=== PATIENT | male | born 1970 | race Caucasian/White ===

== ENCOUNTER 2018-08-30 19:42 | Inpatient (IN) | payer MEDICARE, OTHER ==
[~2018-08-30] VITALS: Ht 172.7 cm; Wt 161.9 kg
[2018-08-30] MEDS ORDERED: MORPHINE SULFATE 4 MG/ML CPJ (NOT FOR IM USE) IV STA (20:16)
[2018-08-30] MEDS ORDERED: ONDANSETRON HCL 4MG/2ML INJ IV STA (20:16)
[2018-08-30 21:23] LABS: BASOPHILS % 0.2 % (0.0-2.0); CHLORIDE 101 mEq/L (98-107); EOSINOPHILS % 0.7 % (0.0-5.0); HEMATOCRIT. 37.3 % (42.0-52.0); HEMOGLOBIN. 12.4 g/dL (14.0-18.0); LYMPHOCYTES % 14.6 % (20.0-50.0); MEAN CORPUSCULAR HEMOGLOBIN 32.1 pg (28.0-32.0); MEAN CORPUSCULAR VOLUME 96.4 fL (80.0-94.0); MEAN PLATELET VOLUME 7.3 fl (7.4-10.4); MONOCYTES % 7.3 % (2.0-8.0); NEUTROPHILS % 77.2 % (40.0-76.0); PLATELET 207 x1000/uL (130-400); RED BLOOD CELL COUNT 3.87 mill/uL (4.7-6.1); RED CELL DISTRIBUTION WIDTH 13.7 % (11.6-14.6)
[2018-08-30 21:24] LABS: INR 1.1; PROTHROMBIN TIME 10.7 sec (9.1-11.1)
[2018-08-30 22:20] LABS: CLARITY URINE CLEAR (CLEAR); COLOR URINE YELLOW (YELLOW); KETONES URINE NEGATIVE (NEGATIVE); LEUKOCYTE ESTERASE URINE NEGATIVE (NEGATIVE); NITRITE URINE NEGATIVE (NEGATIVE); OCCULT BLOOD URINE NEGATIVE (NEGATIVE); PROTEIN URINE NEGATIVE (NEGATIVE); SPECIFIC GRAVITY URINE 1.023 (1.005-1.030)
[2018-08-30] MEDS ORDERED: GUAIFENESIN 200MG/10ML SUGAR FREE UDC PO PRN (22:30)
[2018-08-30] MEDS ORDERED: IPRATROPIUM/ALBUTEROL 0.5-3(2.5)MG/3ML NEB INH PRN (22:30)
[2018-08-30] MEDS ORDERED: HYDRALAZINE 20MG/ML VIAL IV PRN (22:30)
[2018-08-30] MEDS ORDERED: HYDROMORPHONE HCL/PF 2MG/ML CPJ IV PRN (22:30)
[2018-08-30] MEDS ORDERED: MAGNESIUM/ALUMINUM HYDROXIDE/SIMETHICONE 30ML UDC PO PRN (22:30)
[2018-08-30] MEDS ORDERED: DIPHENHYDRAMINE 50MG/ML VIAL IV PRN (22:30)
[2018-08-30] MEDS ORDERED: CLONIDINE 0.1MG TABLET PO PRN (22:30)
[2018-08-30] MEDS ORDERED: ONDANSETRON HCL 4MG/2ML INJ IV PRN (22:30)
[2018-08-30] MEDS ORDERED: LORAZEPAM 2MG/ML CPJ IV PRN (22:30)
[2018-08-30] MEDS ORDERED: NA PHOS,M-B/NA PHOS,DI-BA ENEMA 118ML PR PRN (22:30)
[2018-08-30] MEDS ORDERED: DOCUSATE SODIUM 100MG CAPSULE PO PRN (22:30)
[2018-08-30] MEDS ORDERED: DEXTROSE 50% WATER 50ML SYRINGE IV PRN (22:30)
[2018-08-31] MEDS: HYDROCODONE/ACETAMINOPHEN 10/325MG TABLET PO PRN ×2 (02:35→20:39)
[2018-08-31 06:51] LABS: BASOPHILS % 0.3 % (0.0-2.0); EOSINOPHILS % 0.6 % (0.0-5.0); HEMATOCRIT. 35.3 % (42.0-52.0); HEMOGLOBIN. 11.9 g/dL (14.0-18.0); LYMPHOCYTES % 16.6 % (20.0-50.0); MEAN CORPUSCULAR HEMOGLOBIN 32.3 pg (28.0-32.0); MEAN CORPUSCULAR VOLUME 96.1 fL (80.0-94.0); MEAN PLATELET VOLUME 7.4 fl (7.4-10.4); MONOCYTES % 8.4 % (2.0-8.0); NEUTROPHILS % 74.1 % (40.0-76.0); PLATELET 188 x1000/uL (130-400); RED BLOOD CELL COUNT 3.67 mill/uL (4.7-6.1); RED CELL DISTRIBUTION WIDTH 13.4 % (11.6-14.6)
[2018-08-31 07:00] LABS: CHLORIDE 101 mEq/L (98-107)
[2018-08-31 07:15] LABS: CREATINE KINASE 109 IU/L (39-308)
[2018-08-31 07:17] LABS: T4 FREE 0.86 ng/dL (0.76-1.46)
[2018-08-31 07:19] LABS: CREATINE KINASE MB FRACTION < 1.0 ng/mL (0.5-3.6)
[2018-08-31] MEDS: BLOOD SUGAR DIAGNOSTIC STRIP TEST SCH ×4 (08:20→20:39)
[2018-08-31] MEDS: INSULIN LISPRO 100 UNITS/ML SUBCUT SCH ×4 (08:20→20:40)
[2018-08-31 10:42] LABS: T4 FREE 0.88 ng/dL (0.76-1.46)
[2018-08-31 11:28] VITALS: BP 151/94
[2018-08-31] MEDS ORDERED: IOHEXOL-350 100 ML BOTTLE ONE ×2 (11:42→13:52)
[2018-08-31] MEDS: ASPIRIN 81MG EC TABLET PO SCH (11:53)
[2018-08-31] MEDS: ENOXAPARIN 40MG/0.4ML SYR SUBCUT SCH ×2 (11:55→20:39)
[2018-08-31 13:17] VITALS: BP 156/94
[2018-08-31] MEDS: SODIUM CHLORIDE 0.9% INJ 3ML FLUSH IVF SCH ×2 (14:00→21:42)
[2018-08-31 15:45] VITALS: BP 141/72
[2018-08-31] MEDS ORDERED: ASPI-1159 MT (16:21)
[2018-08-31] MEDS ORDERED: ALLO100T MT (16:26)
[2018-08-31] MEDS ORDERED: GLIP10TA10 MT (16:26)
[2018-08-31] MEDS ORDERED: FLUO-124 MT (16:26)
[2018-08-31] MEDS ORDERED: BENA20TA10 MT (16:26)
[2018-08-31] MEDS ORDERED: METF-516 MT (16:26)
[2018-08-31] MEDS ORDERED: ATOR20TA65 MT (16:26)
[2018-08-31] MEDS: ACETAMINOPHEN 325MG TABLET PO PRN (16:33)
[2018-08-31 16:48] LABS: BASOPHILS % 0.1 % (0.0-2.0); EOSINOPHILS % 0.4 % (0.0-5.0); HEMATOCRIT. 35.8 % (42.0-52.0); HEMOGLOBIN. 12.2 g/dL (14.0-18.0); LYMPHOCYTES % 12.9 % (20.0-50.0); MEAN CORPUSCULAR HEMOGLOBIN 32.7 pg (28.0-32.0); MEAN CORPUSCULAR VOLUME 96.3 fL (80.0-94.0); MEAN PLATELET VOLUME 7.1 fl (7.4-10.4); MONOCYTES % 10.2 % (2.0-8.0); NEUTROPHILS % 76.4 % (40.0-76.0); PLATELET 174 x1000/uL (130-400); RED BLOOD CELL COUNT 3.72 mill/uL (4.7-6.1); RED CELL DISTRIBUTION WIDTH 13.7 % (11.6-14.6)
[2018-08-31 17:02] LABS: CREATINE KINASE 102 IU/L (39-308)
[2018-08-31 17:03] LABS: CREATINE KINASE MB FRACTION < 1.0 ng/mL (0.5-3.6)
[2018-08-31 20:00] VITALS: BP 119/72
[2018-09-01] VITALS: BP 136/75
[2018-09-01 04:00] VITALS: BP 123/99
[2018-09-01] MEDS: SODIUM CHLORIDE 0.9% INJ 3ML FLUSH IVF SCH ×3 (05:16→21:18)
[2018-09-01] MEDS: BLOOD SUGAR DIAGNOSTIC STRIP TEST SCH ×4 (06:27→20:37)
[2018-09-01] MEDS: INSULIN LISPRO 100 UNITS/ML SUBCUT SCH ×4 (07:40→21:17)
[2018-09-01 08:00] VITALS: BP 134/78
[2018-09-01] MEDS ORDERED: REGADENOSON 0.4 MG/5 ML IV ONE ×2 (08:45→12:01)
[2018-09-01 12:00] VITALS: BP 148/90
[2018-09-01] MEDS: ENOXAPARIN 40MG/0.4ML SYR SUBCUT SCH ×2 (13:01→20:36)
[2018-09-01] MEDS: ASPIRIN 81MG EC TABLET PO SCH (13:01)
[2018-09-01] MEDS: ACETAMINOPHEN 325MG TABLET PO PRN (13:09)
[2018-09-01 16:00] VITALS: BP 138/81
[2018-09-01 20:00] VITALS: BP 142/74
[2018-09-02] VITALS: BP_SYST 151; BP_SYST 96; BP_DIAS 45; BP_DIAS 91
[2018-09-02 04:00] VITALS: BP 144/87
[2018-09-02] MEDS: BLOOD SUGAR DIAGNOSTIC STRIP TEST SCH (06:22)
[2018-09-02] MEDS: SODIUM CHLORIDE 0.9% INJ 3ML FLUSH IVF SCH (06:22)
[2018-09-02 08:00] VITALS: BP 131/76
[2018-09-02] MEDS: INSULIN LISPRO 100 UNITS/ML SUBCUT SCH (08:06)
[2018-09-02] MEDS: ASPIRIN 81MG EC TABLET PO SCH (08:08)
[2018-09-02 10:27] VITALS: BP 131/76
== END 2018-09-02 11:50 | disposition home or self-care (01) | DRG 206 ==
LOC: ER 20:33 → 6WST 21:44 → EDBEDREQ 21:48 → ENRESERV 08-31 07:32
PROVIDERS: ADMIT Internal Medicine; ATTEND Internal Medicine
DX: M94.0 Chondrocostal junction syndrome [Tietze] (principal); Z68.43 Body mass index [BMI] 50.0-59.9, adult; E66.01 Morbid (severe) obesity due to excess calories; I10 Essential (primary) hypertension; E78.00 Pure hypercholesterolemia, unspecified; F10.21 Alcohol dependence, in remission; R60.0 Localized edema; E11.9 Type 2 diabetes mellitus without complications; Z79.84 Long term (current) use of oral hypoglycemic drugs; Z79.899 Other long term (current) drug therapy
CPT/HCPCS: 36415; 71045; 71275; 74176; 78452; 80061; 82550; 82553; 82962; 83036; 83605; 83880; 84439; 84443; 84484; 85379; 86850; 86900; 93005; 93017; 93306; 93970; 96374; 96375; 99285; A9500; C1893; J1650; J1815; J2270; J2405; J2785; Q9967